=== PATIENT | female | born 1940 | race Hispanic/Latino ===

== ENCOUNTER 2021-02-02 12:44 | Outpatient (CLI) | payer MEDICARE | END 2021-02-02 12:45 | disposition home or self-care (01) | LOC: TBSIIMAG 12:44 | PROVIDERS: ATTEND Neurological Surgery | DX: M48.061 Spinal stenosis, lumbar region without neurogenic claudication (principal); M48.04 Spinal stenosis, thoracic region; M84.48XA Pathological fracture, other site, initial encounter for fracture; Z98.890 Other specified postprocedural states | CPT/HCPCS: 72100 ==